=== PATIENT | female | born 1995 | race Caucasian/White ===

== ENCOUNTER 2017-10-10 21:01 | Emergency (ER) | payer OTHER ==
[2017-10-10 21:21] VITALS: RESP 18
[2017-10-10 22:03] LABS: Appearance,Urine Cloudy (Clear); Bacteria,Urine Rare /hpf; Bilirubin,Urine Negative (Negative); Blood,Urine Negative (Negative); Color,Urine Yellow; Glucose,Urine (UA) Negative (Negative); Ketones,Urine Negative (Negative); Leukocyte Esterase,Urine Large (Negative); Mucus,Urine Rare /hpf; Nitrite,Urine Negative (Negative); PH, Urine 6.5 (5.0-8.0); Protein,Urine Trace (Negative); RBC,Urine 2 /hpf (0-5); Specific Gravity,Urine 1.023 (1.001-1.035); Squamous Epithelial Cell,Urine 14 /hpf (0-4); WBC,Urine 17 /hpf (0-5)
[2017-10-10] MEDS ORDERED: SULFAMETH-TMP DS STARTER PACK 2 TAB BTL PO STA (23:55)
--- NOTE | 2017-10-10 23:55 | ED ---
Female Urogenital HPI - General Chief complaint: Urogenital Stated complaint: Abd Pain Time Seen by Provider: 10/10/17 22:32 Source: patient Mode of arrival: ambulatory Limitations: no limitations - History of Present Illness Initial comments: 22-year-old female patient presents to the emergency department today for evaluation of suprapubic abdominal cramping, dysuria, and follow odor to the urine. Patient states his been going on for the last few days. Patient denies any fevers or chills. Denies any nausea or vomiting. Denies any flank pain. Patient denies any history of urinary tract infection. Patient is sexually active, reports no concern for sexually transmitted infections. Patient states her last period was at the beginning of this month, denies any chance of . Patient denies any recent rash, shortness breath, chest pain, abdominal pain, diarrhea, constipation, back pain, numbness, tingling, dizziness , weakness, headache, visual changes, or any other complaints. - Related Data Home Medications Medication Instructions Recorded Confirmed Cephalexin [Keflex] 500 mg PO Q12HR 07/06/13 07/06/13 Previous Rx's Medication Instructions Recorded metroNIDAZOLE [Flagyl] 500 mg PO BID #14 tab 10/11/17 Allergies Allergy/AdvReac Type Severity Reaction Status Date / Time codeine Allergy Rash/Hives Verified 10/10/17 21:21 Review of Systems ROS Statement: Those systems with pertinent positive or pertinent negative responses have been documented in the HPI. ROS Other: All systems not noted in ROS Statement are negative. Past Medical History Past Medical History: No Reported History Additional Past Medical History / Comment(s): premature History of Any Multi-Drug Resistant Organisms: None Reported Past Surgical History: Ear Surgery Additional Past Surgical History / Comment(s): ear tubes Past Psychological History: No Psychological Hx Reported Smoking Status: Never smoker Past Alcohol Use History: None Reported Past Drug Use History: None Reported General Exam Limitations: no limitations General appearance: alert, in no apparent distress, other (This is a well- developed, well-nourished adult female patient in no acute distress. Vital signs upon presentation are temperature 98.2F, pulse 86, respirations 18, blood pressure 106/79, pulse ox 100% on room air.) Eye exam: Present: normal appearance, PERRL, EOMI. Absent: scleral icterus, conjunctival injection, periorbital swelling ENT exam: Present: normal exam, normal oropharynx, mucous membranes moist Respiratory exam: Present: normal lung sounds bilaterally. Absent: respiratory distress, wheezes, rales, rhonchi, stridor Cardiovascular Exam: Present: regular rate, normal rhythm, normal heart sounds. Absent: systolic murmur, diastolic murmur, rubs, gallop, clicks GI/Abdominal exam: Present: soft, tenderness (Superpubic tenderness), normal bowel sounds. Absent: distended, guarding, rebound, rigid External exam: Present: normal external exam Speculum exam: Present: vaginal discharge (Thin, crowell, frothy vaginal discharge) . Absent: normal speculum exam, cervical discharge, vaginal bleeding By manual exam: Present: normal by manual exam. Absent: cervical motion tenderness, adnexal tenderness Back exam: Present: normal inspection. Absent: CVA tenderness (R), CVA tenderness (L) Neurological exam: Present: alert, oriented X3, CN II-XII intact Psychiatric exam: Present: normal affect, normal mood Skin exam: Present: warm, dry, intact, normal color. Absent: rash Course Vital Signs 10/10/17 10/11/17 21:18 00:21 Temperature 98.0 F 98.2 F Pulse Rate 86 75 Respiratory 18 18 Rate Blood Pressure 106/79 136/57 O2 Sat by Pulse 100 100 Oximetry Medical Decision Making - Medical Decision Making 22-year-old female patient presents to the emergency department today for evaluation of dysuria and suprapubic cramping. Physical examination did reveal some suprapubic abdominal tenderness. Urinalysis did have some elevated white blood cells but appeared to be contaminated. Did perform pelvic examination which did reveal a thin crowell and frothy vaginal discharge. Trichomonas was negative. This is consistent with bacterial vaginosis. We will treat with Flagyl. We did obtain cultures for gonorrhea and chlamydia as well. Patient is instructed to follow-up with her primary care physician as well as her finisher card tender for further evaluation. She is instructed to not drink alcohol while taking the Flagyl. Return parameters were discussed in detail. She verbalizes understanding and agrees with this plan. - Lab Data Lab Results 10/10/17 10/10/17 10/10/17 Range/Units 21:21 21:21 23:12 Urine Color Yellow Urine Appearance Cloudy H (Clear) Urine pH 6.5 (5.0-8.0) Ur Specific [place] 1.023 (1.001-1.035) Urine Protein Trace H (Negative) Urine Glucose (UA) Negative (Negative) Urine Ketones Negative (Negative) Urine Blood Negative (Negative) Urine Nitrite Negative (Negative) Urine Bilirubin Negative (Negative) Urine Urobilinogen 3.0 (<2.0) mg/dL Ur Leukocyte Esterase Large H (Negative) Urine RBC 2 (0-5) /hpf Urine WBC 17 H (0-5) /hpf Ur Squamous Epith Cells 14 H (0-4) /hpf Urine Bacteria Rare H (None) /hpf Urine Mucus Rare H (None) /hpf Urine HCG, Qual Not Detected (Not Detectd) Trichomonas Ag (Rapid) Negative (Negative) Disposition Clinical Impression: Bacterial vaginosis Disposition: HOME SELF-CARE Condition: Good Instructions: Bacterial Vaginosis (ED) Additional Instructions: Increase fluids. Complete antibiotic prescription and full. Follow-up with your primary care physician for recheck in 1-2 days. Return here immediately for any new, worsening, or concerning symptoms. Prescriptions: metroNIDAZOLE [Flagyl] 500 mg PO BID #14 tab Is patient prescribed a controlled substance at d/c from ED?: No Referrals: None,Stated [Primary Care Provider] - 1-2 days Time of Disposition: 23:55
[2017-10-11] MEDS ORDERED: metroNIDAZOLE 500 MG TAB PO STA (00:04)
[2017-10-11 00:22] VITALS: BP 136/57; PULSE 75; TEMP 98.2
[2017-10-12 14:06] LABS: C. trachomatis,PCR Negative (Neg,Equiv); Chlamydia trachomatis Source Cervix; N. gonorrhoeae,PCR Negative (Neg,Equiv); Neisseria Source Cervix
== END 2017-10-11 00:22 | disposition home or self-care (01) ==
LOC: EC 21:01
DX: N76.0 Acute vaginitis (principal); R82.99 Other abnormal findings in urine; Z88.5 Allergy status to narcotic agent
CPT/HCPCS: 81001; 81025; 87070; 87086; 87205; 87491; 87591; 87808; 99284

== ENCOUNTER 2018-01-07 20:05 | Emergency (ER) | payer OTHER ==
[2018-01-07 20:17] VITALS: BP 123/70; RESP 18; TEMP 98.3
[2018-01-07 20:49] LABS: Appearance,Urine Clear (Clear); Bilirubin,Urine Negative (Negative); Blood,Urine Negative (Negative); Color,Urine Yellow; Glucose,Urine (UA) Negative (Negative); Ketones,Urine Negative (Negative); Leukocyte Esterase,Urine Negative (Negative); Nitrite,Urine Negative (Negative); PH, Urine 6.5 (5.0-8.0); Protein,Urine Trace (Negative); Specific Gravity,Urine 1.026 (1.001-1.035)
[2018-01-07 21:09] VITALS: PULSE 64
--- NOTE | 2018-01-07 21:20 | ED ---
Abdominal Pain HPI - General Chief Complaint: Abdominal Pain Stated Complaint: Hematuria Time Seen by Provider: 01/07/18 20:22 Source: patient Mode of arrival: ambulatory Limitations: no limitations - History of Present Illness Initial Comments: There is a 22-year-old female who presents to the emergency department today for evaluation of dysuria. Patient reports that she's been evaluated for dysuria and hematuria multiple times in the past and has had multiple urinary tract infections. She reports she was on antibiotics approximately a month ago for urinary tract infection. She reports that for the past week she's been experiencing dysuria, she believes that there was some blood in her urine earlier in the week and she had some mild left flank pain though that is now improving. Patient discussed the symptoms with her mom who encouraged her to come to the ER for reevaluation today. Patient denies any concern for sexual transmitted infections. She did have a pelvic exam with STD testing last month when she had a urinary tract infection and was negative for everything. She's followed up with the health department as well though she's not been treated for any STDs as her testing has been negative. Patient reports that she's been maintaining however vaginal hygiene including no baths, patient urinating after intercourse, always wiping front to back, not wearing thong underwear or sleeping and long underwear. Despite this patient reports she continues to have episodes of dysuria. Patient has no other complaints. She denies any fevers, chills, nausea or vomiting. - Related Data Home Medications Medication Instructions Recorded Confirmed No Known Home Medications 01/07/18 01/07/18 Allergies Allergy/AdvReac Type Severity Reaction Status Date / Time codeine Allergy Rash/Hives Verified 10/10/17 21:21 Review of Systems ROS Statement: Those systems with pertinent positive or pertinent negative responses have been documented in the HPI. ROS Other: All systems not noted in ROS Statement are negative. Past Medical History Past Medical History: No Reported History Additional Past Medical History / Comment(s): premature History of Any Multi-Drug Resistant Organisms: ESBL Date of last positivie culture/infection: 10/10/17 ESBL-E.Coli MDRO Source:: Urine Past Surgical History: Ear Surgery Additional Past Surgical History / Comment(s): ear tubes Past Psychological History: No Psychological Hx Reported Smoking Status: Never smoker Past Alcohol Use History: Occasional Past Drug Use History: None Reported General Exam - General Exam Comments Initial Comments: Physical Exam GENERAL: Patient is well-developed and well-nourished. Patient is nontoxic and well- hydrated and is in no distress. HENT: Normocephalic, Atraumatic. EYES: PERRL, EOMI PULMONARY: Unlabored respirations. No audible rales rhonchi or wheezing was noted. CARDIOVASCULAR: There is a regular rate and rhythm without any murmurs gallops or rubs. ABDOMEN: Soft and nontender with normal bowel sounds. SKIN: Skin is clear with no lesions or rashes and otherwise unremarkable. : Deferred NEUROLOGIC: Patient is alert and oriented x3. Moving all extremities spontaneously MUSCULOSKELETAL: Normal extremities with adequate strength and full range of motion. No lower extremity swelling or edema. No calf tenderness. PSYCHIATRIC: Normal psychiatric evaluation. Limitations: no limitations Limitations: no limitations Course Vital Signs 01/07/18 01/07/18 20:13 21:09 Temperature 98.3 F Pulse Rate 67 64 Respiratory 18 18 Rate Blood Pressure 123/70 O2 Sat by Pulse 84 L 99 Oximetry Medical Decision Making - Medical Decision Making The patient was seen and evaluated, history was obtained from the patient. Patient with episodic dysuria, reports dysuria for approximately one week with episodes of hematuria. Urinalysis was obtained The patient denies any concern for sexual transmitted infection declined sexual transmitted infections testing or treatment is she was tested last month was negative Patient has never followed up with urology for her frequent dysuria Urinalysis with no evidence of hematuria or urinary tract infection. These results were discussed with patient who expresses relief and is agreeable to plan with discharge home. I discussed with the patient the importance of oral hydration, avoiding bladder irritants including spicy foods and caffeine. I advised patient that if she has persistent symptoms she should follow-up with urology and she was given contact information for the urology office. All questions pertaining care were answered best my ability patient was discharged home in stable condition. - Lab Data Lab Results 01/07/18 01/07/18 Range/Units 20:29 20:29 Urine Color Yellow Urine Appearance Clear (Clear) Urine pH 6.5 (5.0-8.0) Ur Specific [place] 1.026 (1.001-1.035) Urine Protein Trace H (Negative) Urine Glucose (UA) Negative (Negative) Urine Ketones Negative (Negative) Urine Blood Negative (Negative) Urine Nitrite Negative (Negative) Urine Bilirubin Negative (Negative) Urine Urobilinogen 4.0 (<2.0) mg/dL Ur Leukocyte Esterase Negative (Negative) Urine HCG, Qual Not Detected (Not Detectd) Disposition Clinical Impression: Dysuria Disposition: HOME SELF-CARE Condition: Good Instructions: Dysuria (ED) Is patient prescribed a controlled substance at d/c from ED?: No Referrals: Hermila Ames MD [Primary Care Provider] - 1-2 days Elie Sánchez MD [STAFF PHYSICIAN] - 1-2 days
== END 2018-01-07 21:55 | disposition home or self-care (01) ==
LOC: EC 20:05
DX: R30.0 Dysuria (principal); R10.9 Unspecified abdominal pain; Z88.5 Allergy status to narcotic agent; Z87.440 Personal history of urinary (tract) infections
CPT/HCPCS: 81003; 81025; 99284

== ENCOUNTER 2018-04-04 20:20 | Emergency (ER) | payer OTHER ==
[2018-04-04 20:50] VITALS: BP 136/79; PULSE 79; RESP 20; TEMP 98.2
[2018-04-04] MEDS ORDERED: TRIAMCINOLONE 0.1% CREAM 80 GM TUBE TOPICAL STA (21:22)
[2018-04-04] MEDS ORDERED: HYDROCORTISONE 1% CREAM 30 GM TUBE TOPICAL STA (21:25)
--- NOTE | 2018-04-04 21:25 | ED ---
Extremity Problem HPI - General Chief complaint: Extremity Problem,Nontraumatic Stated complaint: skin irritation on legs, 8 weeks preg Time Seen by Provider: 04/04/18 21:09 Source: patient, RN notes reviewed, old records reviewed Mode of arrival: ambulatory Limitations: no limitations - History of Present Illness Initial comments: This is a 22-year-old female the ER for evaluation she presents today for evaluation regarding rash to leg. Patient is near on her legs, patient is 8 weeks . Patient is near first time, first time she's had this reaction. She states it is itchy to her her anterior ledezma. Denies any other complaints MD Complaint: other (Right extremity lower extremity rash) -: days(s) Location: right, lower extremity History of Same: No Radiation: none Quality: other (Itching) Improves with: nothing Worsens with: nothing Associated Symptoms: denies other symptoms - Related Data Home Medications Medication Instructions Recorded Confirmed No Known Home Medications 01/07/18 04/04/18 Allergies Allergy/AdvReac Type Severity Reaction Status Date / Time codeine Allergy Rash/Hives Verified 10/10/17 21:21 Review of Systems ROS Statement: Those systems with pertinent positive or pertinent negative responses have been documented in the HPI. ROS Other: All systems not noted in ROS Statement are negative. Past Medical History Past Medical History: No Reported History Additional Past Medical History / Comment(s): premature History of Any Multi-Drug Resistant Organisms: ESBL Date of last positivie culture/infection: 10/10/17 ESBL-E.Coli MDRO Source:: Urine Past Surgical History: Ear Surgery Additional Past Surgical History / Comment(s): ear tubes Past Psychological History: No Psychological Hx Reported Smoking Status: Never smoker Past Alcohol Use History: Occasional Past Drug Use History: None Reported General Exam - General Exam Comments Initial Comments: Patient does have maculopapular erythematous rash right anterior ledezma Limitations: no limitations General appearance: alert, in no apparent distress Head exam: Present: atraumatic, normocephalic, normal inspection Eye exam: Present: normal appearance, PERRL, EOMI. Absent: scleral icterus, conjunctival injection, periorbital swelling ENT exam: Present: normal exam, mucous membranes moist Neck exam: Present: normal inspection. Absent: tenderness, meningismus, lymphadenopathy Respiratory exam: Present: normal lung sounds bilaterally. Absent: respiratory distress, wheezes, rales, rhonchi, stridor Cardiovascular Exam: Present: regular rate, normal rhythm, normal heart sounds. Absent: systolic murmur, diastolic murmur, rubs, gallop, clicks GI/Abdominal exam: Present: soft, normal bowel sounds. Absent: distended, tenderness, guarding, rebound, rigid Extremities exam: Present: normal inspection, full ROM, normal capillary refill. Absent: tenderness, pedal edema, joint swelling, calf tenderness Back exam: Present: normal inspection Neurological exam: Present: alert, oriented X3, CN II-XII intact Psychiatric exam: Present: normal affect, normal mood Skin exam: Present: warm, dry, intact, normal color. Absent: rash Course Vital Signs 04/04/18 20:45 Temperature 98.2 F Pulse Rate 79 Respiratory 20 Rate Blood Pressure 136/79 O2 Sat by Pulse 100 Oximetry Medical Decision Making - Medical Decision Making 22 female the ER for evaluation, patient has folliculitis, ALLERGIC reaction to nare. Patient given topical steroid cream and can be discharged home Disposition Clinical Impression: Dermatitis, Folliculitis Disposition: HOME SELF-CARE Condition: Good Instructions (If sedation given, give patient instructions): Folliculitis (ED) Is patient prescribed a controlled substance at d/c from ED?: No Referrals: Hermila Ames MD [Primary Care Provider] - 1-2 days
== END 2018-04-04 21:42 | disposition home or self-care (01) ==
LOC: EC 20:20
DX: O99.711 Diseases of the skin and subcutaneous tissue complicating pregnancy, first trimester (principal); L30.9 Dermatitis, unspecified; L73.9 Follicular disorder, unspecified; Z3A.08 8 weeks gestation of pregnancy; Z88.5 Allergy status to narcotic agent
CPT/HCPCS: 99283

== ENCOUNTER → 2018-04-30 | Outpatient (CLI) | payer OTHER ==
--- NOTE | 2018-04-30 14:47 | US ---
EXAMINATION TYPE: Transabdominal DATE OF EXAM: 04/30/2018 1:52 PM COMPARISON: NONE CLINICAL HISTORY: Z36 CONFIRM [id number] EXAM PERFORMED: Transabdominal (TA) EXAM MEASUREMENTS: GESTATIONAL AGE / DATING Physician Established: Not yet established Dates by LMP: LMP unknown Dates by Current Scan for: (12 weeks/2 days) EDC: 11/10/2018 MATERNAL ANATOMY Uterus: 13.9 x 8.5 x 6.5cm Right Ovary: 3.9 x 3.4 x 1.9cm Left Ovary: 4.4 x 2.0 x 2.5cm Post CDS / Adnexa: wnl Presence of free fluid: no Presence of corpus luteal cyst: possibly in left ovary = 1.1 x 1.4x 1.2cm Presence of subchorionic bleed: no GESTATION / SURVEY CRL: 5.7cm (12 weeks/2 days) Yolk Sac (normal less than 6mm): not seen Heart Rate: 157 bpm Rhythm: Normal IUP: Viable IUP Nuchal Translucency 10-14wks (normal less than 3mm): 0.6mm Date of LMP: unknown Beta HcG (if available): NA Single live intrauterine gestation is confirmed as gestational sac and pole are seen. Yolk sac is not clearly identified. No free fluid is seen in pelvic cul-de-sac. Both ovaries are seen. Within left ovary there is hypervascular isoechoic 1.2 cm lesion felt to refle ct corpus luteal cyst in the periphery. No suspicious extra ovarian adnexal masses are present. IMPRESSION: Single live intrauterine gestation is confirmed, mean crown-rump length is 5.7 cm corresponding to a 12 week 2 day old fetus.
== END ==
LOC: RADUSWWP 13:00
PROVIDERS: ATTEND Obstetrics & Gynecology
DX: Z36.89 Encounter for other specified antenatal screening (principal); Z3A.12 12 weeks gestation of pregnancy
CPT/HCPCS: 76801; 76813

== ENCOUNTER 2018-05-11 17:15 | Emergency (ER) | payer OTHER ==
[2018-05-11 17:34] VITALS: TEMP 98.4
--- NOTE | 2018-05-11 17:50 | ED ---
General Adult HPI - General Chief complaint: Upper Respiratory Infection Stated complaint: cough/sore throat Time Seen by Provider: 05/11/18 17:38 Source: patient, RN notes reviewed, old records reviewed Mode of arrival: ambulatory Limitations: no limitations - History of Present Illness Initial comments: 22-year-old female patient approximately 14 weeks gestation presents to ED with 1 day of dry cough, sore throat, rhinitis. Patient denies any fevers or chills. Patient denies any abdominal pain, nausea vomiting diarrhea, vaginal bleeding, vaginal discharge, dysuria. Patient denies other complaints. Systemic: Pt denies fatigue, myalgia, fever/chills, rash. Pt denies weakness, night sweats, weight loss. Neuro: Pt denies headache, visual disturbances, syncope or pre-syncope. HEENT: Pt denies ocular discharge or irritation, otalgia, pharyngitis or notable lymphadenopathy. Cardiopulmonary: Pt denies chest pain, SOB, heart palpitations, dyspnea on exertion. Abdominal/GI: Pt denies abdominal pain, n/v/d. : Pt denies dysuria, burning w/ urination, frequency/urgency. Denies new onset urinary or bowel incontinence. MSK: Pt denies myalgia, loss of strength or function in extremities. Neuro: Pt denies new onset weakness, paresthesias. - Related Data Home Medications Medication Instructions Recorded Confirmed Oyg-Crii-Btbjo Acid 1 cap PO DAILY 05/11/18 05/11/18 [-U Capsule (formulary)] Allergies Allergy/AdvReac Type Severity Reaction Status Date / Time codeine Allergy Rash/Hives Verified 05/11/18 18:05 pseudoephedrine Allergy Unknown Verified 05/11/18 18:05 Review of Systems ROS Statement: Those systems with pertinent positive or pertinent negative responses have been documented in the HPI. ROS Other: All systems not noted in ROS Statement are negative. Past Medical History Past Medical History: No Reported History Additional Past Medical History / Comment(s): premature History of Any Multi-Drug Resistant Organisms: ESBL Date of last positivie culture/infection: 10/10/17 ESBL-E.Coli MDRO Source:: Urine Past Surgical History: Ear Surgery Additional Past Surgical History / Comment(s): ear tubes Past Psychological History: No Psychological Hx Reported Smoking Status: Never smoker Past Alcohol Use History: Occasional Past Drug Use History: None Reported General Exam - General Exam Comments Initial Comments: Constitutional: NAD, AOX3, Pt has pleasant affect. HEENT: NC/AT, trachea midline, neck supple, no lymphadenopathy. Posterior pharynx non erythematous, without exudates. External ears appear normal, without discharge. Mucous membranes moist. Eyes PERRLA, EOM intact. There is no scleral icterus. No pallor noted. Cardiopulmonary: RRR, no murmurs, rubs or gallops, no JVD noted. Lungs CTAB in anterior and posterior dyer. No peripheral edema. Abdominal exam: Abdomen soft and non-distended. Abdomen non-tender to palpation in all 4 quadrants. Bowel sounds active in LLQ. No hepatosplenomegaly. No ecchymosis Neuro: CN II-XII intact. No nuchal rigidity. MSK: No posterior calf tenderness bilaterally, homans sign negative bilaterally. Posterior tibialis and radial pulse +2 bilaterally. Sensation intact in upper and lower extremities. Full active ROM in upper and lower extremities, 5/5 stregnth. Limitations: no limitations Course Vital Signs 05/11/18 05/11/18 17:32 17:52 Temperature 98.4 F Pulse Rate 92 87 Respiratory 16 18 Rate Blood Pressure 141/66 125/65 O2 Sat by Pulse 100 99 Oximetry Medical Decision Making - Medical Decision Making 22-year-old female patient approximately 14 weeks gestation presents to ED with 1 day of dry cough, sore throat, rhinitis. Patient denies any fevers or chills. Patient denies any abdominal pain, nausea vomiting diarrhea, vaginal bleeding, vaginal discharge, dysuria. Patient denies other complaints. Patient vital signs stable, afebrile. Physical exam did not display acute pathology. Laboratory investigations revealed negative influenza. Shared decision making, patient does not wish to have imaging chest due to radiation exposure. Patient diagnosed with viral syndrome. Patient discharged with close outpatient follow- up. Patient will follow-up with REACHER and primary care physician tomorrow. Patient return to ER if condition worsens in any way or if new signs or symptoms develop. Case discussed with Dr. Martinez. - Lab Data Lab Results 05/11/18 Range/Units 17:50 Influenza Type A RNA Not Detected (Not Detectd) Influenza Type B (PCR) Not Detected (Not Detectd) Disposition Clinical Impression: Viral syndrome Disposition: HOME SELF-CARE Condition: Stable Instructions (If sedation given, give patient instructions): Upper Respiratory Infection in Children (ED) Additional Instructions: Patient to adhere to previously discussed treatment plan and will take medication(s) as directed. Patient to follow up with PCP in 1-2 days. Patient to return to ED if symptoms do not improve. Please follow-up with REACHER and primary care physician tomorrow. Please return to ER if condition worsens in anyway. Is patient prescribed a controlled substance at d/c from ED?: No Referrals: None,Stated [Primary Care Provider] - 1-2 days
[2018-05-11 17:52] VITALS: BP 125/65; PULSE 87; RESP 18
--- NOTE | 2018-05-11 18:37 | ED ---
Medical Decision Making - Lab Data Lab Results 05/11/18 Range/Units 17:50 Influenza Type A RNA Not Detected (Not Detectd) Influenza Type B (PCR) Not Detected (Not Detectd) Disposition Clinical Impression: Viral syndrome Disposition: HOME SELF-CARE Condition: Stable Instructions (If sedation given, give patient instructions): Viral Syndrome (ED) Additional Instructions: Patient to adhere to previously discussed treatment plan and will take medication(s) as directed. Patient to follow up with PCP in 1-2 days. Patient to return to ED if symptoms do not improve. Please follow-up with [facility] [employer] INSPECTOR and primary care physician tomorrow. Please return to ER if condition worsens in anyway. Is patient prescribed a controlled substance at d/c from ED?: No Referrals: None,Stated [Primary Care Provider] - 1-2 days
== END 2018-05-11 18:49 | disposition home or self-care (01) ==
LOC: EC 17:15
DX: O98.512 Other viral diseases complicating pregnancy, second trimester (principal); B34.9 Viral infection, unspecified; Z3A.14 14 weeks gestation of pregnancy; Z88.5 Allergy status to narcotic agent; Z88.8 Allergy status to other drugs, medicaments and biological substances
CPT/HCPCS: 87502; 99284

== ENCOUNTER 2018-07-08 20:02 | Outpatient (CLI) | payer OTHER ==
[2018-07-08 20:40] VITALS: BP 126/60; PULSE 79; RESP 16; TEMP 97.9
[2018-07-08 20:45] LABS: Appearance,Urine Clear (Clear); Bilirubin,Urine Negative (Negative); Blood,Urine Small (Negative); Color,Urine Yellow; Glucose,Urine (UA) Negative (Negative); Ketones,Urine Negative (Negative); Leukocyte Esterase,Urine Small (Negative); Mucus,Urine Rare /hpf; Nitrite,Urine Negative (Negative); PH, Urine 6.5 (5.0-8.0); Protein,Urine Trace (Negative); RBC,Urine 28 /hpf (0-5); Specific Gravity,Urine 1.035 (1.001-1.035); Squamous Epithelial Cell,Urine 3 /hpf (0-4); WBC,Urine 2 /hpf (0-5)
--- NOTE | 2018-07-19 08:17 | P.MSEPDOC ---
Presenting Problems - Arrival Data Date of Arrival on Unit: 07/08/18 Time of Arrival on Unit: 20:02 Mode of Transport: Ambulatory - Complaint Comment: leaking clear fluid Medical History - Information : 1 Para: 0 Term: 0 : 0 Abortions: Spontaneous or Elective: 0 Number of Living Children: 0 - Gestational Age Gestational Age by ACE (wks/days): 21 Weeks and 6 Days - History Complications: No Care Review of Systems - Review of Systems Constitutional: No problems Breast: No problems ENT: No problems Cardiovascular: No problems Respiratory: No problems Gastrointestinal: No problems Genitourinary: No problems Musculoskeletal: No problems Neurological: No problems Comment: leg wound on her inner left calf Vital Signs - Temperature Temperature: 97.9 F Temperature Source: Temporal Artery Scan - Pulse Right Pulse Rate: 79 Pulse Assessment Method: Pulse Oximetry - Respirations Respiratory Rate: 16 O2 Sat by Pulse Oximetry: 100 - Blood Pressure Right Arm Blood Pressure: 126/60 Blood Pressure Mean: 82 Blood Pressure Source: Automatic Cuff Medical Screen Scoring (Pre) - Cervical Exam Dilation: Exam Deferred Effacement: Exam Deferred - Uterine Contractions Frequency: N/A Duration: N/A Intensity: N/A - Maternal Vital Signs Maternal Temperature: N/A Maternal Blood Pressure: N/A Signs of Preeclampsia: N/A Maternal Respirations: N/A - Total Score Total Score (Pre): 0 - Level of Risk Level of Risk: Low (0-5) Medical Screen Scoring (Post) - Cervical Exam Dilation: Exam Deferred Effacement: Exam Deferred - Uterine Contractions Frequency: N/A Duration: N/A Intensity: N/A - Maternal Vital Signs Maternal Temperature: N/A Maternal Blood Pressure: N/A Signs of Preeclampsia: N/A Maternal Respirations: N/A - Total Score Total Score (Post): 0 Physician Notification (Post) - Physician Notified Physician Notified Date: 07/08/18 Physician Notified Time: 20:56 Physician/Practitioner Notified:: Dr Newsome - Notification Comment Comment: reported on pts c/o leaking x2 days, pink now. reported on fhts per doppler, occasional cramping. reported on no leaking noted per visualization or SSE, amnisure negative. reported on UA results. Orders to send UA for culture, keep scheduled appt, return with new or worsening needs, d/c home with instrutions. Disposition - Disposition OB Disposition: Discharge to home Discharge Date: 07/08/18 Discharge Time: 21:00 I agree with the RN Medical Screening Exam: Yes Risk & Benefit of care provided described in d/c instruction: Yes Diagnosis: FALSE LABOR, UNSPECIFIED
== END 2018-07-08 21:03 | disposition home or self-care (01) ==
LOC: FBPOP 20:02
PROVIDERS: ATTEND Obstetrics & Gynecology
DX: O47.02 False labor before 37 completed weeks of gestation, second trimester (principal); Z3A.21 21 weeks gestation of pregnancy
CPT/HCPCS: 84112; 81001; 87086; G0463; 99213

== ENCOUNTER 2018-07-22 21:58 | Outpatient (CLI) | payer OTHER ==
[2018-07-22 22:52] VITALS: RESP 16
[2018-07-22 23:43] LABS: Basophils % (A) 1 %; Eosinophils # (A) 0.2 k/uL (0-0.7); Eosinophils % (A) 2 %; HCT 36.5 % (34.0-46.0); HGB 12.2 gm/dL (11.4-16.0); Lymphocytes # (A) 1.9 k/uL (1.0-4.8); Lymphocytes % (A) 21 %; MCH 32.5 pg (25.0-35.0); MCHC 33.4 g/dL (31.0-37.0); MCV 97.4 fL (80.0-100.0); Mean Platelet Volume 7.9; Monocytes # (A) 0.5 k/uL (0-1.0); Monocytes % (A) 6 %; Neutrophils # (A) 6.3 k/uL (1.3-7.7); Neutrophils % (A) 70 %; Platelet Count 226 k/uL (150-450); RBC 3.75 m/uL (3.80-5.40); RDW 14.6 % (11.5-15.5)
--- NOTE | 2018-07-22 23:50 | US ---
EXAM: US Uterus, Limited CLINICAL HISTORY: ITS.REASON US Reason: vag bleeding TECHNIQUE: Real-time ultrasound of the maternal uterus (limited) with image documentation. COMPARISON: No relevant prior studies available. FINDINGS: Single live intrauterine is identified. Placenta is anterior. Placental lakes are seen. No placental previa. REECE 17 cm. Cervical length is 3.9 cm. Presentation is vertex. BPD, head circumference, abdominal circumference, and femur length (6.4 cm, 24 Blum, 20.4 cm is, 4.7 cm respectively). This is gestational age of 25 weeks and 4 days. As stated weight is 791 g. Heart rate is 158 bpm. IMPRESSION: Normal ultrasound. Estimated delivery date is 11/12/18.
[2018-07-23 00:50] VITALS: BP 138/80; PULSE 80; TEMP 98.2
--- NOTE | 2018-07-23 07:45 | P.MSEPDOC ---
Presenting Problems - Arrival Data Date of Arrival on Unit: 07/22/18 Time of Arrival on Unit: 21:55 Mode of Transport: Portable - Complaint OB-Reason for Admission/Chief Complaint: Vaginal Bleeding Comment: bright red vag bleeding noted this evening Medical History - Information : 1 Para: 0 Term: 0 : 0 Abortions: Spontaneous or Elective: 0 Number of Living Children: 0 - Gestational Age Gestational Age by ACE (wks/days): 23 Weeks and 6 Days Review of Systems - Review of Systems Constitutional: No problems Breast: No problems ENT: No problems Cardiovascular: No problems Respiratory: No problems Gastrointestinal: No problems Genitourinary: No problems Musculoskeletal: No problems Neurological: No problems Skin: No problems Vital Signs - Temperature Temperature: 98.2 F Temperature Source: Oral - Pulse Right Pulse Rate: 80 Pulse Assessment Method: Pulse Oximetry - Respirations Respiratory Rate: 16 - Blood Pressure Right Arm Blood Pressure: 138/80 Blood Pressure Mean: 99 Blood Pressure Source: Automatic Cuff Medical Screen Scoring (Pre) - Cervical Exam Dilation: Exam Deferred Effacement: Exam Deferred - Uterine Contractions Frequency: N/A Duration: N/A Intensity: N/A - Maternal Vital Signs Maternal Temperature: N/A Maternal Blood Pressure: Systolic >139 = 2 Signs of Preeclampsia: N/A Maternal Respirations: N/A - Pain Assessment Pain Scale Used: Numeric (1 - 10) - Assessment Baseline FHR: 150 Heart Rate - NICHD Category: Category I (Normal) = 0 - Total Score Total Score (Pre): 2 - Level of Risk Level of Risk: Low (0-5) Physician Notification (Pre) - Physician Notified Physician Notified Date: 07/22/18 Physician Notified Time: 22:31 Physician/Practitioner Notifed:: Dr Serrato - Notification Comment Comment: Reported on pts c/o vag bleeding, hx of pink dishcarge a few weeks ago that resolved, no issues at appt last week. Reported on fhts, +fm per pt and RN, small amount of bright red blood noted on SSE, vag exam deferred at this time, ffn collected but full of bright red blood. Reported on pts vitals, no hx. Orders to obtain complete OB u/s, cbc and type and screen if pt unsure of her rh status. If no previa per u/s, check cervix and call with results. Medical Screen Scoring (Post) - Cervical Exam Dilation: 0 cm = 0 Membranes: Intact - Uterine Contractions Frequency: N/A Duration: N/A Intensity: N/A - Maternal Vital Signs Maternal Temperature: N/A Maternal Blood Pressure: Systolic >139 = 2 Signs of Preeclampsia: N/A Maternal Respirations: N/A - Pain Assessment Pain Intensity: 0 - Total Score Total Score (Post): 2 - Post Treatment Level of Risk Post Treatment Level of Risk: Low (0-5) Physician Notification (Post) - Physician Notified Physician Notified Date: 07/23/18 Physician Notified Time: 00:35 Physician/Practitioner Notified:: Dr Serrato - Notification Comment Comment: reported to Dr Serrato pts u/s report, lab results, reviewed BPs. Reported on SVE,. bleeding noted, fhts dopplered again. Orders to d/c home with instructions, call office. in am to schedule an appt for next week, pelvic rest and off work until further notice,. no strenuous activity until further notice. Dr Serrato states she will review BP/vitals and. next week's check as well. Pt is to return with any new or worsening s/sx. Disposition - Disposition OB Disposition: Discharge to home Discharge Date: 07/23/18 Discharge Time: 00:45 I agree with the RN Medical Screening Exam: Yes Risk & Benefit of care provided described in d/c instruction: Yes Diagnosis: SPOTTING COMPLICATING , SECOND TRIMESTER
== END 2018-07-23 00:45 | disposition home or self-care (01) ==
LOC: FBPOP 21:58
PROVIDERS: ATTEND Obstetrics & Gynecology
DX: O26.852 Spotting complicating pregnancy, second trimester (principal); Z3A.23 23 weeks gestation of pregnancy
CPT/HCPCS: 86900; 86901; 85025; 86850; 76805; G0463; 99215

== ENCOUNTER 2018-07-27 12:09 | Outpatient (CLI) | payer OTHER ==
[2018-07-27 13:38] VITALS: BP 123/56; PULSE 85; RESP 16; TEMP 97.8
[2018-07-27] MEDS ORDERED: BETAMET ACET-BETAMETH SOD PHOS 6 MG/ML VIAL IM SCH (14:30)
[2018-07-27] MEDS ORDERED: LACTATED RINGERS 1,000 ML IV SCH (14:30)
[2018-07-27] MEDS ORDERED: AMPICILLIN 1,000 MG in SODIUM CHLORIDE 0.9% 50 ML IVPB SCH (15:00)
--- NOTE | 2018-07-27 15:07 | P.TRANS ---
Providers Expected date of discharge: 07/27/18 Attending physician: Mayi Serrato Primary care physician: Stated None Hospital Course: Rae is a 22-year-old at 24 weeks gestation who ryes complaining of vaginal bleeding. This is her third visit to labor and delivery for same basic complaint. She was in last weekend with a very similar presentation slight pink to red bleeding and fluid on her undergarments. She again returned today showing a picture of a pair of underwear that is essentially soaked through with fluid and blood. I did do a speculum exam and there is blood in the back vagina and bloody fluid in the back of the vagina visualizing the cervix I do not see any lacerations or lesions on the cervix it appeared grossly closely did do a digital exam and noted to be extremely fingertip internally closed. A effort then and amnio sure were done FSN was negative but and Essure possibly due to bloody fluid was positive. That said she is only 24 weeks gestation I need to have a second opinion in we will transfer her to [facility] under the care of Dr. Holland. I did speak with him personally. We have given her dose antibody and a dose of steroids as a precaution. Ultrasound reveals baby to be vertex amniotic fluid index however is normal. I think it is not necessary likely that she is ruptured, however I am also unclear as to why she has so much bloody fluid and the explanation needs further evaluation and therefore we will be requesting a second opinion from maternal- medicine. On physical exam vital signs are otherwise stable and she is afebrile. Heart regular, lungs clear, extremities without pain. Abdomen is soft there is no contractions are otherwise pain. heart tones are noted in the 130s to 150s. Assessment intrauterine 24 weeks with vaginal bleeding. Plan transfer of care. Patient Condition at Discharge: Stable Plan - Transfer Summary Transfer Medications: Active Medications Generic Name Dose Route Start Last Admin Trade Name Freq PRN Reason Stop Dose Admin Betamethasone Acet/Betameth SodPhos 12 mg 07/27/18 14:30 07/27/18 14:27 Celestone Soluspan IM 07/28/18 14:31 12 mg Q24H ELIO Administration Lactated Ringer's 1,000 mls @ 999 mls/hr 07/27/18 14:30 07/27/18 14:32 Lactated Ringers IV 07/27/18 15:30 999 mls/hr .Q1H1M ELIO Administration Ampicillin Sodium 1,000 mg/ 50 mls @ 100 mls/hr 07/27/18 15:00 07/27/18 14:37 Sodium Chloride IVPB 100 mls/hr Q4H ELIO Administration
--- NOTE | 2018-07-27 15:27 | US ---
EXAMINATION TYPE: US OB >= 14 wk fetus DATE OF EXAM: 07/27/2018 COMPARISON: US 07/22/2018 CLINICAL HISTORY: REECE, EFW Position TECHNIQUE: Transabdominal (TA) GESTATIONAL AGE / DATING Physician Established: (24 weeks/4 days) EDC: 11/12/2018 Dates by LMP: (24 weeks/4 days) EDC: 11/12/2018 Dates by First Scan: (24 weeks/6 days) EDC: 11/10/2018 Dates by Current Scan: (25 weeks/6 days) EDC: 11/03/2018 Beta HCG (if available): Not available at this time SURVEY IUP: Single PLACENTA: Anterior PREVIA: No Previa REECE: 18.7 cm Normal CERVICAL LENGTH (transabdominal: norm > 3.0cm): 3.5 cm BIOMETRY PRESENTATION: Vertex LIE: Longitudinal BPD: 6.6 cm 26 weeks / 4 days HC: 24.35 cm 26 weeks / 4 days AC: 19.68 cm 24 weeks / 3 days FL: 4.6 cm 25 weeks / 3 days ESTIMATED WEIGHT IN GRAMS: 760 grams ESTIMATED WEIGHT IN LBS/OZ: 1 lbs. 11 oz. WEIGHT PERCENTAGE BASED ON ESTABLISHED DATES: 61% HC/AC: 1.24 Normal FL/AC: 23% Normal HEART RATE: 149 bpm RHYTHM: Normal Live IUP, measurements consistent with dates. IMPRESSION: Single live intrauterine with a sonographic age of 25 weeks and 6 days and estimated date o f delivery of 11/03/2018, concordant with menstrual age. Amniotic fluid index is within normal limits measured at 18.7. Current presentation is vertex.
== END 2018-07-27 16:06 | disposition other institution (70) ==
LOC: FBPOP 12:09
PROVIDERS: ATTEND Obstetrics & Gynecology
DX: O46.93 Antepartum hemorrhage, unspecified, third trimester (principal); Z3A.24 24 weeks gestation of pregnancy
CPT/HCPCS: 96361; 96365; 96372; 84112; 82731; 76805; G0463; J0702; J0290; 96366; 99214

== ENCOUNTER 2018-11-05 05:57 | Inpatient (IN) | payer OTHER ==
--- NOTE | 2018-11-04 17:10 | P.HPOB ---
History of Present Illness H&P Date: 11/04/18 Chief Complaint: Induction of labor This is a 23-year-old female 1 para 0 with an estimated date of confinement of 11/12/2018, estimated gestational age of 89-0/7 weeks, who presents to labor and delivery for induction of labor. She admits to good movement. She denies any rupture of membranes. course has been essentially uncomplicated. There was a concern for spontaneous rupture of membranes and she was transferred to [facility] at approximately 26 weeks. It was determined that she did not have rupture of membranes and she was released. She did have steroids given at that time also. labs: Hepatitis B surface antigen-negative RPR-nonreactive Rubella-immune Blood type-A+ Antibody screen-negative HIV-nonreactive Hemoglobin-13.6 Random glucose-83 Quad screen-negative One hour Glucola-82 Group B streptococcus-positive Obstetrical history: . Gynecologic history: No history of sexual transmitted diseases Social history: She is single. She works part-time doing skilled nursing work. Review of Systems Constitutional: Denies chills, Denies fever Eyes: denies blurred vision, denies pain Ears, nose, mouth and throat: Denies headache, Denies sore throat Cardiovascular: Denies chest pain, Denies shortness of breath Respiratory: Denies cough Gastrointestinal: Reports abdominal pain (Irregular contractions), Reports heartburn Genitourinary: Reports pelvic pain, Reports Musculoskeletal: Reports low back pain Integumentary: Denies pruritus, Denies rash Neurological: Denies numbness, Denies weakness Psychiatric: Denies anxiety, Denies depression Past Medical History Past Medical History: No Reported History History of Any Multi-Drug Resistant Organisms: ESBL Date of last positivie culture/infection: 10/10/17 ESBL-E.Coli MDRO Source:: Urine Past Surgical History: Ear Surgery Additional Past Surgical History / Comment(s): ear tubes Past Psychological History: No Psychological Hx Reported Smoking Status: Never smoker Past Alcohol Use History: None Reported Past Drug Use History: None Reported Medications and Allergies Home Medications Medication Instructions Recorded Confirmed Type Mlu-Qpuz-Redaw Acid 1 cap PO DAILY 05/11/18 07/27/18 History [-U Capsule (formulary)] Allergies Allergy/AdvReac Type Severity Reaction Status Date / Time codeine Allergy Anaphylaxis Verified 07/22/18 22:05 pseudoephedrine Allergy Swelling Verified 07/22/18 22:05 Exam Osteopathic Statement: *. No significant issues noted on an osteopathic structural exam other than those noted in the History and Physical/Consult. HEENT: Within normal limits Heart: Regular rate and rhythm Lungs: Clear to auscultation bilaterally Abdomen: Cervix: 1-1/2 cm/70%/-2 station heart tones: 140s by Doppler Extremities: Negative Homans Assessment and Plan (1) 39 weeks gestation of Status: Acute Code(s): Z3A.39 - 39 WEEKS GESTATION OF SNOMED Code(s): 07809854 (2) Group B Streptococcus carrier, +RV culture, currently Status: Acute Code(s): O99.820 - STREPTOCOCCUS B CARRIER STATE COMPLICATING SNOMED Code(s): 4653137158429 Plan: Proceed with oxytocin induction of labor. Antibiotic prophylaxis for group B streptococcus. Expectant management. Epidural anesthesia if desired.
[2018-11-05] MEDS ORDERED: METHYLERGONOVINE 0.2 MG/ML 1 ML AMP IM PRN (06:05)
[2018-11-05] MEDS ORDERED: LIDOCAINE 0.5% (PF) 5 MG/ML (50 ML SDV) SQ PRN (06:05)
[2018-11-05] MEDS ORDERED: OXYTOCIN 30 UNITS/500 ML NS 30 UNIT in SALINE 1 500ML.BAG IV SCH (06:05)
[2018-11-05] MEDS ORDERED: LIDOCAINE 1% 20 ML VIAL (10MG/ML) FOR IV START INTRADERMA PRN (06:05)
[2018-11-05] MEDS ORDERED: CARBOPROST TROMETHAMINE 250 MCG/ML 1 ML AMP IM PRN (06:05)
[2018-11-05] MEDS ORDERED: OXYTOCIN 10 UNIT/ML 1 ML VIAL IM PRN (06:05)
[2018-11-05] MEDS ORDERED: AMPICILLIN 2,000 MG in SODIUM CHLORIDE 0.9% 100 ML IVPB STA (06:05)
[2018-11-05] MEDS: LACTATED RINGERS 1,000 ML IV SCH ×4 (06:11→18:54)
[2018-11-05 06:34] VITALS: BMI 42.0
[2018-11-05 06:44] LABS: Basophils # (A) 0.1 k/uL (0-0.2); Basophils % (A) 1 %; Eosinophils # (A) 0.1 k/uL (0-0.7); Eosinophils % (A) 1 %; HCT 40.1 % (34.0-46.0); HGB 13.5 gm/dL (11.4-16.0); Lymphocytes # (A) 2.1 k/uL (1.0-4.8); Lymphocytes % (A) 26 %; MCH 32.8 pg (25.0-35.0); MCHC 33.5 g/dL (31.0-37.0); MCV 97.8 fL (80.0-100.0); Mean Platelet Volume 8.2; Monocytes # (A) 0.5 k/uL (0-1.0); Monocytes % (A) 6 %; Neutrophils # (A) 5.1 k/uL (1.3-7.7); Neutrophils % (A) 64 %; Platelet Count 250 k/uL (150-450); RDW 15.3 % (11.5-15.5); WBC 8.1 k/uL (3.8-10.6)
[2018-11-05] MEDS ORDERED: fentaNYL (PF) 50 MCG/ML 5 ML AMP ONE (11:06)
[2018-11-05] MEDS ORDERED: ROPIVACAINE 5MG/ML 20ML VIAL ONE (11:06)
[2018-11-05] MEDS ORDERED: SODIUM CHLORIDE 0.9% 100 ML BAG ONE (11:06)
[2018-11-05] MEDS: AMPICILLIN 1,000 MG in SODIUM CHLORIDE 0.9% 50 ML IVPB SCH ×2 (11:19→15:02)
[2018-11-05] MEDS ORDERED: CITRIC ACID-SODIUM CITRATE 15 ML CUP PO ONE (18:51)
[2018-11-05] MEDS ORDERED: OXYTOCIN 10 UNIT/ML 1 ML VIAL ONE (18:58)
[2018-11-05] MEDS ORDERED: MORPHINE SULFATE (PF) 0.3 MG/0.3 ML SYR ONE (18:58)
[2018-11-05] MEDS ORDERED: ONDANSETRON 4 MG/2 ML VIAL ONE (18:58)
--- NOTE | 2018-11-05 19:52 | P.OP ---
Date of Procedure: 11/05/18 Preoperative Diagnosis: 1. Intrauterine at 39-0/7 weeks. 2. Group B streptococcus carrier. 3. Failure to progress. Postoperative Diagnosis: Same Procedure(s) Performed: Primary low transverse section Anesthesia: epidural Surgeon: Mayi Serrato Hide And Skin Colerer #1: Daniella Posadas Estimated Blood Loss (ml): 700 Pathology: none sent Condition: stable Disposition: floor Indications for Procedure: This is a 23-year-old female 1 para 0 at 39-0/7 weeks who presents for scheduled induction of labor. She underwent oxytocin induction of labor. She did receive antibiotic prophylaxis in labor secondary to positive group B streptococcus. She reached a maximum of approximately 3 cm with no significant change management facilitator 5-6 hours despite adequate contractions. There is also noted to be some caput at this point. The decision was then made to proceed with section. I have discussed the risks, benefits, and alternative therapies for the above- mentioned procedure and for both sedation/anesthesia as well as necessary blood products administration, if indicated, as they pertain to this patient. The patient has indicated her understanding and acceptance of the risks and procedures discussed. Operative Findings: A viable female is noted in the vertex presentation with scores of 9 at 1 minute and 9 at 5 minutes and infant weight of 7 lbs. 8 oz. Normal uterus tubes and ovaries are noted. Description of Procedure: The patient is taken to the operating room where she is placed in the dorsal supine position with leftward tilt after epidural anesthesia is bolused. She is prepped and draped in the normal sterile fashion. Skin was tested and found to be adequately anesthetized. A Pfannenstiel skin incision was made with a scalpel. A second knife was used to carry the incision down to the underlying layer of fascia. The fascia was nicked in the midline with a scalpel and then extended laterally bilaterally with Smith scissors. The anterior lip of the f ascia was grasped with 2 Vero clamps and then dissected off the underlying rectus muscle in the midline with Smith scissors. The inferior aspect of the fascial incision was grasped with 2 Vero clamps and dissected off the underlying rectus muscle and the midline with Smith scissors. Next the peritoneum layer was tented up with 2 hemostats and then entered sharply with the scalpel. The incision is extended superiorly and inferiorly with Metzenbaum scissors. Next a DeLee retractor is placed. The vesicouterine peritoneum is entered sharply with Metzenbaum scissors and extended laterally bilaterally with Metzenbaum scissors and then the bladder flap is pushed inferiorly. The lower uterine segment is incised in transverse fashion with the scalpel and then bluntly entered with a hemostat. Clear fluid is noted. The incision was then extended laterally bilaterally with 2 fingers. Next the 's head is delivered through the incision. Nose and mouth are bulb suctioned. The remai nder of the is easily delivered and placed on mother's abdomen. Cord is clamped and cut. Infant is taken to warmer by nursing staff. Uterine fundus is gently massaged and placenta is delivered manually. Uterus is exteriorized and cleared of all clots and debris. Uterine incision is closed with 0 Vicryl suture in a running locked fashion. A second layer of 0 Vicryl suture is used in a running fashion for hemostasis. Once adequate hemostasis as assured, the vesicouterine peritoneum is reapproximated with 2-0 Vicryl suture in a running fashion. Posterior cul-de-sac is suctioned of all clots and debris. Uterus is returned to the abdomen. Incision is noted to be hemostatic. Peritoneal layer is closed with 0 Vicryl suture in a running fashion. Muscle layer is reapproximated with 0 Vicryl suture in interrupted fashion. Fascia layer is then closed with 0 PDS suture with 2 sutures meeting in the midline and the knots buried in either side and in the midline. The subcutaneous tissue was then closed with 2-0 Vicryl suture. Skin layer was then closed with sugey. All sponge and needle counts are correct. The patient is taken to recovery room in stable condition.
[2018-11-05] MEDS ORDERED: diphenhydrAMINE 50 MG/ML 1 ML VIAL IVP PRN ×2 (19:56)
[2018-11-05] MEDS ORDERED: ZOLPIDEM 5 MG TAB PO PRN (19:56)
[2018-11-05] MEDS ORDERED: HYDROcodone/APAP 7.5-325MG 1 EACH TAB PO PRN ×2 (19:56→20:09)
[2018-11-05] MEDS ORDERED: NALOXONE 0.4 MG/ML 1 ML VIAL IV PRN (19:56)
[2018-11-05] MEDS ORDERED: METOCLOPRAMIDE 5 MG/ML 2 ML VIAL IVP PRN (19:56)
[2018-11-05] MEDS ORDERED: ACETAMINOPHEN TAB 325 MG TAB PO PRN (19:56)
[2018-11-05] MEDS ORDERED: OXYTOCIN 20 UNITS/1000 ML NS 1,000 ML IV SCH (19:56)
[2018-11-05] MEDS ORDERED: WITCH HAZEL 1 EACH MED..PAD TOPICAL PRN (19:56)
[2018-11-05] MEDS ORDERED: diphenhydrAMINE 50 MG CAP PO PRN (19:56)
[2018-11-05] MEDS ORDERED: HYDROcodone/APAP 5-325MG 1 EACH TAB PO PRN (19:56)
[2018-11-05] MEDS ORDERED: SIMETHICONE 80 MG CHEWABLE PO PRN (19:56)
[2018-11-05] MEDS ORDERED: MAGNESIUM HYDROXIDE 2,400 MG/10 ML CUP PO PRN (19:56)
[2018-11-05] MEDS ORDERED: HYDROmorphone PCA 10 MG/50 ML BAG IV PRN (19:56)
[2018-11-05] MEDS ORDERED: ONDANSETRON 4 MG/2 ML VIAL IVP PRN (19:56)
[2018-11-05] MEDS ORDERED: LANOLIN CREAM 5 GM TUBE TOPICAL PRN (19:56)
[2018-11-05] MEDS ORDERED: diphenhydrAMINE 25 MG CAP PO PRN (19:56)
[2018-11-05] MEDS ORDERED: KETOROLAC 30 MG/ML 1 ML VIAL IVP PRN (19:56)
[2018-11-06] MEDS: SENNOSIDES-DOCUSATE SODIUM 1 EACH TAB PO SCH ×3 (03:18→21:05)
[2018-11-06] MEDS: AMPICILLIN 1,000 MG in SODIUM CHLORIDE 0.9% 50 ML IVPB SCH (05:15)
--- NOTE | 2018-11-06 06:35 | P.PN ---
Progress Note - Text Progress Note Date: 11/06/18 Pt without complaints. Ambulating w/o weakness or paresthesia. Pain controlled. Pruritis controlled. Denies headache. VSS Back - puncture site clean and dry A/P POD#1 s/p w/ epidural duramorph - doing well
[2018-11-06 08:47] LABS: Basophils # (A) 0.1 k/uL (0-0.2); Basophils % (A) 0 %; Eosinophils # (A) 0.1 k/uL (0-0.7); Eosinophils % (A) 1 %; HCT 32.8 % (34.0-46.0); HGB 11.2 gm/dL (11.4-16.0); Lymphocytes # (A) 2.5 k/uL (1.0-4.8); Lymphocytes % (A) 16 %; MCH 33.5 pg (25.0-35.0); MCHC 34.2 g/dL (31.0-37.0); Mean Platelet Volume 8.1; Monocytes # (A) 0.6 k/uL (0-1.0); Monocytes % (A) 4 %; Neutrophils # (A) 11.9 k/uL (1.3-7.7); Neutrophils % (A) 78 %; Platelet Count 191 k/uL (150-450); RBC 3.35 m/uL (3.80-5.40); RDW 14.1 % (11.5-15.5); WBC 15.2 k/uL (3.8-10.6)
--- NOTE | 2018-11-06 09:06 | P.PNOBGPC ---
Subjective - Subjective Principal diagnosis: Status post primary section postoperative day #1 Interval history: Patient is doing okay. She is not passing flatus or bowel movement yet. She has ambulated a small amount. Lochia is decreasing. She is bottle feeding. Pain is fairly well controlled at this point. Patient reports: Reports appetite normal, Reports voiding normally, Reports pain well controlled, Reports ambulating normally : doing well, bottle feeding Objective - Vital Signs Latest vital signs: Vital Signs Temp Pulse Resp BP Pulse Ox 11/06/18 04:00 98.2 F 81 18 120/62 97 11/05/18 23:31 98.7 F 84 17 124/60 96 11/05/18 21:30 97.5 F L 81 15 138/66 100 11/05/18 21:00 97.4 F L 79 18 139/84 100 11/05/18 20:45 121 H 18 178/87 100 11/05/18 20:30 97.4 F L 85 18 131/61 100 11/05/18 20:15 98.4 F 90 15 129/65 100 11/05/18 20:00 98 18 123/58 96 11/05/18 19:56 100 Intake and Output 11/05/18 11/06/18 11/06/18 22:59 06:59 14:59 Output Total 780 1500 Balance -780 -1500 Output: Urine 80 800 Uretheral (Marques) 80 800 Estimated Blood Loss 700 700 - Exam Extremities: Present: normal, edema (Trace) Abdomen: Present: normal appearance, soft (Positive faint bowel sounds 4). Absent: distention, tenderness Incision: Present: normal, dry, intact. Absent: erythematous Uterus: Present: normal, firm. Absent: tenderness - Labs Labs: Abnormal Lab Results - Last 24 Hours (Table) 11/06/18 Range/Units 07:46 WBC 15.2 H (3.8-10.6) k/uL RBC 3.35 L (3.80-5.40) m/uL Hgb 11.2 L (11.4-16.0) gm/dL Hct 32.8 L (34.0-46.0) % Neutrophils # 11.9 H (1.3-7.7) k/uL Assessment and Plan Assessment: Status post primary section postoperative day #1 (1) 39 weeks gestation of Current Visit: No Status: Acute Code(s): Z3A.39 - 39 WEEKS GESTATION OF SNOMED Code(s): 09192073 (2) Group B Streptococcus carrier, +RV culture, currently Current Visit: No Status: Acute Code(s): O99.820 - STREPTOCOCCUS B CARRIER STATE COMPLICATING SNOMED Code(s): 8756780173358 Plan: Will discontinue WORKPLACE RELATIONS ADVISER pump and switched oral pain medication today. Encouraged ambulation.
[2018-11-06] MEDS: HYDROcodone/APAP 5-325MG 1 EACH TAB PO PRN (10:51)
[2018-11-06] MEDS: IBUPROFEN 600 MG TAB PO PRN ×2 (14:17→22:24)
[2018-11-07] MEDS: HYDROcodone/APAP 5-325MG 1 EACH TAB PO PRN ×2 (04:15→10:47)
[2018-11-07 07:53] VITALS: BP 116/63; PULSE 94; RESP 20; TEMP 97.5
[2018-11-07] MEDS: SENNOSIDES-DOCUSATE SODIUM 1 EACH TAB PO SCH (08:17)
--- NOTE | 2018-11-07 09:11 | P.DS ---
Providers Date of admission: 11/05/18 05:57 Expected date of discharge: 11/07/18 Attending physician: Mayi Serrato Primary care physician: Mayi Serrato - Discharge Diagnosis(es) (1) 39 weeks gestation of Current Visit: No Status: Acute (2) Group B Streptococcus carrier, +RV culture, currently Current Visit: No Status: Acute Hospital Course: This is a 23-year-old female 1 para 0 at 39-0/7 weeks who presented for induction of labor. She underwent oxytocin induction of labor and then did require a section for failure to progress. She underwent a primary low transverse section on 11/05/2018 and delivered a viable female infant with scores of 9 at 1 minute and 9 at 5 minutes and weight of 7 lbs. 8 oz. Her postoperative course has been essentially uncomplicated. She is passing flatus but no bowel movement yet. She is urinating without difficulty. Her vital signs are stable. Abdomen is soft with positive bowel sounds 4. Incision is clean dry and intact. Fundus is nontender. Extremities show negative Homans. Impression is status post primary low transverse section postoperative day #2. Plan is to discharge home today. [place] will be removed and Steri-Strips placed prior to discharge. She will be given a prescription for ibuprofen, and [place], and a breast pump. She is advised to follow up in the office in 6 weeks for a check and in 1 week for postoperative check. She has been counseled regarding narcotic use and has signed a opioid start taking form. She is advised to call the office if she has any further questions or concerns prior to her appointment time. Procedures: Oxytocin induction of labor Primary low transverse section on 11/05/2018 Patient Condition at Discharge: Stable Plan - Discharge Summary New Discharge Prescriptions: New Ibuprofen [Motrin] 600 mg PO Q6HR PRN #60 tab PRN Reason: Mild Pain Or Fever >= 100.5 HYDROcodone/APAP 5-325MG [[place] 5-325] 1 each PO Q4HR PRN #42 tab PRN Reason: Moderate Pain Continue [id number] Acid [-U Capsule (formulary)] 1 cap PO DAILY Discharge Medication List Mzc-[id number]-Xlrts Acid [-U Capsule (formulary)] 1 cap PO DAILY 05/11/18 [History] HYDROcodone/APAP 5-325MG [[place] 5-325] 1 each PO Q4HR PRN #42 tab 11/07/18 [Rx] Ibuprofen [Motrin] 600 mg PO Q6HR PRN #60 tab 11/07/18 [Rx] Follow up Appointment(s)/Referral(s): Mayi Serrato DO [Primary Care Provider] - 1 Week Activity/Diet/Wound Care/Special Instructions: Instructions 1. Do not begin any exercise program for 3 weeks. 2. Do not resume sexual relations for 3 weeks or longer if uncomfortable. 3. You may take tub baths or showers at any time. 4. You may use tampons if desired after 3 weeks. 5. Keep the area of episiotomy (stitches) clean and dry. 6. If you are not nursing, wear a good fitting, supportive bra during the day and limit fluid intake for at least 1 week to prevent breast engorgement. 7. Call the office, [phone], within the next week to make appointment for your 6 week checkup if it has not already been made. 8. Report any of the following occurrences to the doctor promptly: a. Heavy, excessive bleeding b. Chills, fever c. Burning or frequency of urination d. Pain or redness and breasts if nursing e. Increasing pain or swelling in episiotomy (stitches). In addition to the above instructions, the following additional should be followed: 1. No heavy lifting or straining (exercising) until after 6 week checkup. 2. Keep abdominal incision clean and dry: You may wear a dressing if more comfortable. 3. Make office appointment for 10 days after going home or as instructed by her doctor. Discharge Disposition: HOME SELF-CARE
== END 2018-11-07 13:25 | disposition home or self-care (01) | DRG 788 ==
LOC: 4FBP 05:57
PROVIDERS: ADMIT Obstetrics & Gynecology; ATTEND Obstetrics & Gynecology
PROC: 00HU33Z Insertion of Infusion Device into Spinal Canal, Percutaneous Approach (ICD-10-PCS; 2018-11-05)
PROC: 3E0R3BZ Introduction of Anesthetic Agent into Spinal Canal, Percutaneous Approach (ICD-10-PCS; 2018-11-05)
PROC: 10D00Z1 Extraction of Products of Conception, Low, Open Approach (ICD-10-PCS; principal; 2018-11-05 19:16)
DX: O99.824 Streptococcus B carrier state complicating childbirth (principal); O62.2 Other uterine inertia; O99.72 Diseases of the skin and subcutaneous tissue complicating childbirth; L29.9 Pruritus, unspecified; Z37.0 Single live birth; Z3A.39 39 weeks gestation of pregnancy; Z88.5 Allergy status to narcotic agent; Z88.8 Allergy status to other drugs, medicaments and biological substances
CPT/HCPCS: 85025; 86850; 86900; 86901

== ENCOUNTER 2018-11-16 15:52 | Emergency (ER) | payer OTHER ==
[2018-11-16 16:03] VITALS: BP 115/61; PULSE 76; RESP 20; TEMP 97.7
--- NOTE | 2018-11-16 16:15 | ED ---
Recheck HPI - General Chief Complaint: Recheck/Abnormal Lab/Rx Stated Complaint: C section opening & leaking Time Seen by Provider: 11/16/18 16:12 Source: patient Mode of arrival: ambulatory Limitations: no limitations - History of Present Illness Initial Comments: 23yo female presented for possible surgical site infection. Patient states that she feels like her incision is opening has some drainage that she began noticing today. Patient states she's had no pain at the site denies any current pain. Patient denies any abdominal pain vomiting flulike symptoms or fevers. She denies any foul vaginal discharge or bleeding. Patient states that she is not breast-feeding. Patient denies any other complaints. Patient states that she has been feeling well since the that was performed 11 days prior to presentation. Remaining review of systems negative. Upon arrival patient appears well afebrile no signs of acute distress. She does not appear toxic. - Related Data Home Medications Medication Instructions Recorded Confirmed Ghn-Cplv-Hmvlx Acid 1 cap PO DAILY 05/11/18 07/27/18 [-U Capsule (formulary)] Previous Rx's Medication Instructions Recorded HYDROcodone/APAP 5-325MG [[place] 1 each PO Q4HR PRN #42 tab 11/07/18 5-325] Ibuprofen [Motrin] 600 mg PO Q6HR PRN #60 tab 11/07/18 Cephalexin [Keflex] 500 mg PO Q6HR 7 Days #28 cap 11/16/18 Allergies Allergy/AdvReac Type Severity Reaction Status Date / Time codeine Allergy Anaphylaxis Verified 11/16/18 16:02 pseudoephedrine Allergy Swelling Verified 11/16/18 16:02 Review of Systems ROS Statement: Those systems with pertinent positive or pertinent negative responses have been documented in the HPI. ROS Other: All systems not noted in ROS Statement are negative. Past Medical History Past Medical History: Asthma History of Any Multi-Drug Resistant Organisms: ESBL Date of last positivie culture/infection: 10/10/17 ESBL-E.Coli MDRO Source:: Urine Past Surgical History: Section, Ear Surgery Additional Past Surgical History / Comment(s): ear tubes Past Anesthesia/Blood Transfusion Reactions: No Reported Reaction Past Psychological History: No Psychological Hx Reported Smoking Status: Never smoker Past Alcohol Use History: None Reported Past Drug Use History: None Reported - Past Family History Mother Family Medical History: No Reported History General Exam - General Exam Comments Initial Comments: General: The patient is awake and alert, in no distress, and does not appear acutely ill. Eye: +3 mm pupils are equal, round and reactive to light, extra-ocular movements are intact. No nystagmus. There is normal conjunctiva bilaterally. No signs of icterus. Cardiovascular: There is a regular rate and rhythm. No murmur, rub or gallop is appreciated. Respiratory: Lungs are clear to auscultation, respirations are non-labored, breath sounds are equal. No wheezes, stridor, rales, or rhonchi. Gastrointestinal: Soft, non-distended, non-tender abdomen or pelvic region without masses or organomegaly noted. There is no rebound or guarding present. Horizontal scar that appears intact aside from a very small area of slight dehiscence where there is a tiny amount of drainage and surrounding erythema. There is no complete dehiscence appreciated. Musculoskeletal: Normal ROM, no tenderness. Strength 5/5. Sensation intact. radial pulses equal bilaterally 2+. Neurological: A&O x 3. CN II-XII intact grossly, There are no obvious motor or sensory deficits. Coordination appears grossly intact. Speech is normal. Skin: Skin is warm and dry and no rashes or lesions are noted. Psychiatric: Cooperative, appropriate mood & affect, normal judgment. Limitations: no limitations Course Vital Signs 11/16/18 16:00 Temperature 97.7 F Pulse Rate 76 Respiratory 20 Rate Blood Pressure 115/61 O2 Sat by Pulse 99 Oximetry Medical Decision Making - Medical Decision Making 33-year-old female presenting for evaluation surgical site. Patient does have a very small amount of superficial dehiscence no complete dehiscence appreciated. No large gaping areas of the wound appears to be healing relatively well. There is a small amount of drainage. Patient was evaluated them attending provider Dr. Pantoja at this time does not appear to be significant cellulitis patient be started on an oral antibiotic and have [employer] PROF[employer] follow-up. Otherwise patient's exam is benign no abdominal pain no fevers. Leukocytosis Vital signs are stable. Patient does not appear toxic she is not breast-feeding a be started on Keflex orally she was given ceftriaxone in the emergency department and was discharged appearing well patient was agreeable to this care plan - Lab Data Result diagrams: 11/16/18 16:39 11/16/18 16:39 Lab Results 11/16/18 11/16/18 Range/Units 16:39 16:39 WBC 10.0 (3.8-10.6) k/uL RBC 3.47 L (3.80-5.40) m/uL Hgb 11.2 L (11.4-16.0) gm/dL Hct 33.2 L (34.0-46.0) % MCV 95.8 (80.0-100.0) fL MCH 32.2 (25.0-35.0) pg MCHC 33.6 (31.0-37.0) g/dL RDW 13.5 (11.5-15.5) % Plt Count 482 H D (150-450) k/uL Neutrophils % 70 % Lymphocytes % 22 % Monocytes % 4 % Eosinophils % 2 % Basophils % 0 % Neutrophils # 6.9 (1.3-7.7) k/uL Lymphocytes # 2.1 (1.0-4.8) k/uL Monocytes # 0.4 (0-1.0) k/uL Eosinophils # 0.2 (0-0.7) k/uL Basophils # 0.0 (0-0.2) k/uL Hypochromasia Slight Sodium 141 (137-145) mmol/L Potassium 4.0 (3.5-5.1) mmol/L Chloride 109 H (98-107) mmol/L Carbon Dioxide 22 (22-30) mmol/L Anion Gap 10 mmol/L BUN 13 (7-17) mg/dL Creatinine 0.70 (0.52-1.04) mg/dL Est GFR (CKD-EPI)AfAm >90 (>60 ml/min/1.73 sqM) Est GFR (CKD-EPI)NonAf >90 (>60 ml/min/1.73 sqM) Glucose 98 (74-99) mg/dL Calcium 9.2 (8.4-10.2) mg/dL Disposition Clinical Impression: Wound drainage Disposition: HOME SELF-CARE Condition: Good Instructions (If sedation given, give patient instructions): Cellulitis (ED), Wound Dehiscence (ED) Additional Instructions: Please use medication as discussed. Please follow-up with family doctor in the next 2 days, and make appointment with your surgeon for next week. Please return to emergency room if the symptoms increase or worsen or for any other concerns, abdominal pain, increasing drainage, redness, or pain, FEVERS. Prescriptions: Cephalexin [Keflex] 500 mg PO Q6HR 7 Days #28 cap Is patient prescribed a controlled substance at d/c from ED?: No Referrals: Moi Mahmood MD [Primary Care Provider] - 1-2 days Mayi Serrato DO [Doctor of Osteopathic Medicine] - 1-2 days Time of Disposition: 17:33
[2018-11-16] MEDS ORDERED: cefTRIAXone IN SWFI 1,000 MG/10 ML SYRINGE IVP STA (16:34)
[2018-11-16 17:00] LABS: African American GFR (CKD) >90 (>60 ml/min/1.73 sqM); Anion Gap 10 mmol/L; Blood Urea Nitrogen 13 mg/dL (7-17); Calcium 9.2 mg/dL (8.4-10.2); Carbon Dioxide 22 mmol/L (22-30); Chloride 109 mmol/L (98-107); Glucose 98 mg/dL (74-99); Sodium 141 mmol/L (137-145)
[2018-11-16 17:05] LABS: Basophils % (A) 0 %; Eosinophils # (A) 0.2 k/uL (0-0.7); Eosinophils % (A) 2 %; HCT 33.2 % (34.0-46.0); HGB 11.2 gm/dL (11.4-16.0); Hypochromasia Slight; Lymphocytes # (A) 2.1 k/uL (1.0-4.8); Lymphocytes % (A) 22 %; MCH 32.2 pg (25.0-35.0); MCHC 33.6 g/dL (31.0-37.0); MCV 95.8 fL (80.0-100.0); Mean Platelet Volume 6.7; Monocytes # (A) 0.4 k/uL (0-1.0); Monocytes % (A) 4 %; Neutrophils # (A) 6.9 k/uL (1.3-7.7); Neutrophils % (A) 70 %; RBC 3.47 m/uL (3.80-5.40); RDW 13.5 % (11.5-15.5)
[2018-11-16 17:10] LABS: Platelet Count 482 k/uL (150-450)
== END 2018-11-16 18:07 | disposition home or self-care (01) ==
LOC: EC 15:52
DX: T81.31XA Disruption of external operation (surgical) wound, not elsewhere classified, initial encounter (principal); D72.829 Elevated white blood cell count, unspecified; Z88.5 Allergy status to narcotic agent; Z88.8 Allergy status to other drugs, medicaments and biological substances; Z98.890 Other specified postprocedural states
CPT/HCPCS: 36415; 80048; 85025; 96374; 99283; J0696

== ENCOUNTER → 2019-10-14 | Outpatient (CLI) | payer OTHER ==
--- NOTE | 2019-10-15 08:33 | US ---
EXAMINATION TYPE: US pelvic complete DATE OF EXAM: 10/14/2019 COMPARISON: NONE CLINICAL HISTORY: N92.1 Excessive and frequent menstruation with irr. Irregular cycles TECHNIQUE: . Transabdominal sonographic images of the pelvis were acquired. Date of LMP: 1 week ago EXAM MEASUREMENTS: Uterus: 9.1 x 3.3 x 4.5 cm Endometrial Stripe: 0.2 cm Right Ovary: 4.4 x 2.2 x 3.4 cm Left Ovary: 3.2 x 2.0 x 2.6 cm 1. Uterus: Anteverted wnl 2. Endometrium: wnl 3. Right Ovary: wnl 4. Left Ovary: wnl 5. Bilateral Adnexa: wnl 6. Posterior cul-de-sac: wnl IMPRESSION: No distinct abnormality is appreciated.
== END | disposition home or self-care (01) ==
LOC: RADUSWWP 15:26
PROVIDERS: ATTEND Obstetrics & Gynecology
DX: N92.1 Excessive and frequent menstruation with irregular cycle (principal)
CPT/HCPCS: 76856

== ENCOUNTER → 2020-02-05 | Outpatient (CLI) | payer OTHER | END | disposition home or self-care (01) | LOC: LABWHC1 15:55 | PROVIDERS: ATTEND Emergency Medicine | DX: Z20.828 Contact with and (suspected) exposure to other viral communicable diseases (principal) | CPT/HCPCS: U0003; C9803 ==